=== PATIENT | female | born 1970 | race Caucasian/White ===

== ENCOUNTER → 2018-05-20 | Outpatient (CLI) | payer BC ==
--- NOTE | 2018-05-20 18:13 | US ---
EXAMINATION TYPE: US right lower extremity soft tissue mass DATE OF EXAM: 05/20/2018 COMPARISON: Correlation outside radiographs of the right hip 05/19/2018 CLINICAL HISTORY: 48-year-old female R22.42 Localized swelling right lower limb. 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 Patient states it was small in 1999 but has been getting bigger recently. Hurts to sit down. FINDINGS: Scanning at the palpable site posterior upper right thigh. Centered within the subcutaneous adipose t issues, there is an ovoid, circumscribed, heterogeneously hypoechoic lesion with posterior through tr ansmission and no internal vascularity measuring 2.4 x 3.7 x 1.4 cm. This does not extend to involve the underlying musculature or fascial layer. It lies directly deep to the skin and is located 6 to 7 cm distal to the ischial tuberosity. IMPRESSION: A heterogeneous 3.7 cm solid mass centered within the subcutaneous adipose tissues of the posterior u pper right thigh at the site of palpable abnormality. By ultrasound, there is no involvement of the u nderlying fascial layer or musculature. 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 Consider surgical excision. Depending on the rate of growth and depending on the clinical suspicion for an aggressive etiology, tissue sampling can be performed prior to excision.
== END | disposition home or self-care (01) ==
LOC: RADUSWWP 10:10
PROVIDERS: ATTEND Orthopaedic Surgery
DX: R22.41 Localized swelling, mass and lump, right lower limb (principal)

== ENCOUNTER → 2024-03-25 | Outpatient (CLI) | payer BC ==
--- NOTE | 2024-03-29 10:35 | MM ---
Reason for Exam: Screening (asymptomatic). Last mammogram was performed 2 year(s) and 0 month(s) ago. Patient History: Menarche at age 20. First Full-Term at age 31. Late child-bearing (after 30). Hysterectomy at age 37. Postmenopausal. Risk Values: Renée 5 year model risk: 1.3%. NCI Lifetime model risk: 10.8%. Prior Study Comparison: 12/23/2012 Screening Mammogram, [facility]. 05/02/2015 Screening Mammogram, [facility]. 03/06/2022 Bilateral Screening Mammogram, [facility]. Tissue Density: The breasts are heterogeneously dense, which may obscure small masses. Findings: Analyzed By CAD. There is no suspicious group of microcalcifications. There is a new 6 mm nodule in the upper outer aspect of the right breast. Overall Assessment: Incomplete: need additional imaging evaluation, BI-RAD 0 Management: Diagnostic Mammogram of the right breast. . Patient should continue monthly self-breast exams. A clinical breast exam by your physician is recommended on an annual basis. This exam should not preclude additional follow-up of suspicious palpable abnormalities. Note on Renée scores and lifetime risk: 1. A Renée score greater than 3% is considered moderate risk. If this is the case, consider specialist referral to assess eligibility for a risk reducing agent. 2. If overall lifetime risk for the development of breast cancer is 20% or higher, the patient may qualify for future screening with alternating mammogram and breast MRI. Electronically signed and approved by: Johnny Chavez M.D. Radiologis
== END | disposition home or self-care (01) ==
LOC: RADMAMWWP 10:53
PROVIDERS: ATTEND Family Medicine
DX: Z12.31 Encounter for screening mammogram for malignant neoplasm of breast (principal); Z78.0 Asymptomatic menopausal state
CPT/HCPCS: 77067

== ENCOUNTER → 2024-04-01 | Outpatient (CLI) | payer BC ==
--- NOTE | 2024-04-01 09:27 | MM ---
Reason for Exam: Additional evaluation requested from abnormal screening. Last screening mammogram was performed less than 1 month ago. Patient History: Menarche at age 20. First Full-Term at age 31. Late child-bearing (after 30). Hysterectomy at age 37. Postmenopausal. Risk Values: Renée 5 year model risk: 1.3%. NCI Lifetime model risk: 10.8%. Tissue Density: Right: The breasts are heterogeneously dense, which may obscure small masses. Findings: Analyzed By CAD. Pattern appears stable. Under compression the 4 mm rounded density located 9:00 position middle right breast 4 cm from nipple appears persistent. This appears new from comparison. Ultrasound recommended for additional workup. Overall Assessment: Incomplete: need additional imaging evaluation, BI-RAD 0 Management: Diagnostic Breast Ultrasound of the right breast. A negative mammogram report should not preclude additional follow up of suspicious palpable abnormalities. Patient should continue monthly self breast exam. A clinical breast exam by your physician is recommended on an annual basis and results should be correlated with mammographic findings. Note on Renée scores and lifetime risk: 1. A Renée score greater than 3% is considered moderate risk. If this is the case, consider specialist referral to assess eligibility for a risk reducing agent. 2. If overall lifetime risk for the development of breast cancer is 20% or higher, the patient may qualify for future screening with alternating mammogram and breast MRI. Electronically signed and approved by: Jeremias Ac D.O. Radiologis
--- NOTE | 2024-04-01 09:27 | USB ---
Reason for Exam: Additional evaluation requested from abnormal screening. Patient History: Menarche at age 20. First Full-Term at age 31. Late child-bearing (after 30). Hysterectomy at age 37. Postmenopausal. Risk Values: Renée 5 year model risk: 1.3%. NCI Lifetime model risk: 10.8%. Technique: Method: Targeted. Prior Study Comparison: 05/02/2015 Screening Mammogram, [facility]. 03/06/2022 Bilateral Screening Mammogram, [facility]. 03/25/2024 Bilateral MG screening mammo w CAD, [facility]. Findings: The lateral section of the breast of the right breast, the axilla of the right breast and the retroareolar of the right breast were scanned. At the 9:00 position 4 cm from the nipple there is a simple appearing cyst measuring 0.3 cm in diameter with good through transmission and posterior wall enhancement. This correlates with the mammographic finding.. Overall Assessment: Benign, BI-RAD 2 Management: Screening Mammogram of both breasts in 1 year. A clinical breast exam by your physician is recommended on an annual basis and results should be correlated with mammographic findings. This exam should not preclude additional follow-up of suspicious palpable abnormalities. Results were given to the patient verbally at the time of exam. Electronically signed and approved by: Jeremias Ac D.O. Radiologis
== END | disposition home or self-care (01) ==
LOC: RADMAMWWP 08:19
PROVIDERS: ATTEND Family Medicine
DX: R92.8 Other abnormal and inconclusive findings on diagnostic imaging of breast (principal); R92.331 Mammographic heterogeneous density, right breast; Z78.0 Asymptomatic menopausal state
CPT/HCPCS: 77061; 77065

== ENCOUNTER → 2025-05-26 | Outpatient (CLI) | payer BC ==
--- NOTE | 2025-05-26 07:36 | MM ---
Reason for Exam: Screening (asymptomatic). Last mammogram was performed 1 year(s) and 2 month(s) ago. Patient History: Menarche at age 20. First Full-Term at age 31. Late child-bearing (after 30). Hysterectomy at age 37. Postmenopausal. Risk Values: Renée 5 year model risk: 1.4%. NCI Lifetime model risk: 10.4%. Prior Study Comparison: 03/06/2022 Bilateral Screening Mammogram, [facility]. 03/25/2024 Bilateral MG screening mammo w CAD, [facility]. 04/01/2024 Right MG 3D work up w/cad RT, [facility]. Tissue Density: There are scattered areas of fibroglandular density. Findings: Analyzed By CAD. Right breast: There is no suspicious group of microcalcifications or new suspicious mass. Left breast: There is no suspicious group of microcalcifications or new suspicious mass. Overall Assessment: Negative, BI-RAD 1 Management: Screening Mammogram of both breasts in [address] [facility] will attempt to contact patient to return for supplemental views and ultrasound if indicated. Patient should continue monthly self-breast exams. A clinical breast exam by your physician is recommended on an annual basis. This exam should not preclude additional follow-up of suspicious palpable abnormalities. Note on Renée scores and lifetime risk: 1. A Renée score greater than 3% is considered moderate risk. If this is the case, consider specialist referral to assess eligibility for a risk reducing agent. 2. If overall lifetime risk for the development of breast cancer is 20% or higher, the patient may qualify for future screening with alternating mammogram and breast MRI. [facility], , 05/26/2025 7:33 AM. Electronically signed and approved by: Eriberto Krause DO
== END | disposition home or self-care (01) ==
LOC: RADMAMWWP 07:08
PROVIDERS: ATTEND Family Medicine
DX: Z12.31 Encounter for screening mammogram for malignant neoplasm of breast (principal); R92.323 Mammographic fibroglandular density, bilateral breasts; Z78.0 Asymptomatic menopausal state
CPT/HCPCS: 77063; 77067